=== PATIENT | male | born 2000 | race Caucasian/White ===

== ENCOUNTER 2022-01-10 04:15 | Day surgery (SDC) | payer OTHER ==
[2022-01-09 14:50] VITALS: BMI 39.1
[2022-01-10] MEDS ORDERED: MIDAZOLAM HCL 2 MG/2 ML SINGLE DOSE VIAL ONE ×2 (12:54→14:47)
[2022-01-10] MEDS ORDERED: ceFAZolin SODIUM 1 GM VIAL IVPB ONE (13:20)
[2022-01-10] MEDS ORDERED: ceFAZolin SODIUM 1 GM VIAL ONE (13:22)
[2022-01-10] MEDS ORDERED: LIDOCAINE 1%/EPI 1:100000 (20 ML MULTI DOSE VIAL) IJ ONE ×2 (13:23)
[2022-01-10] MEDS ORDERED: DEXAMETHASONE SOD PHOSPHATE 4 MG/1 ML VIAL ONE (13:55)
[2022-01-10] MEDS ORDERED: ONDANSETRON 4 MG/2 ML VIAL ONE (13:55)
[2022-01-10] MEDS ORDERED: GLYCOPYRROLATE 0.2 MG/1 ML VIAL ONE (13:55)
[2022-01-10] MEDS ORDERED: LIDOCAINE HCL/PF 2% SDV 5ML VIAL ONE (13:55)
[2022-01-10] MEDS ORDERED: NEOSTIGMINE METHYLSULFATE 0.5 MG/ML - 10 ML MDV ONE (13:56)
[2022-01-10] MEDS ORDERED: oxyCODONE HCL 5 MG TABLET PO PRN (14:08)
[2022-01-10] MEDS ORDERED: ONDANSETRON 4 MG/2 ML VIAL IVPUSH PRN (14:08)
[2022-01-10] MEDS ORDERED: LACTATED RINGERS SOLUTION 1,000 ML IV SCH (14:15)
[2022-01-10] MEDS ORDERED: PROPOFOL 40 ML ONE (14:31)
[2022-01-10 16:39] VITALS: RESP 18
[2022-01-10 16:54] VITALS: TEMP 98.2
[2022-01-10 17:44] VITALS: BP 144/94; PULSE 72
== END 2022-01-10 05:45 | disposition home or self-care (01) ==
LOC: JASU-SURG 04:15
PROVIDERS: ATTEND Otolaryngology
PROC: 093K8ZZ Control Bleeding in Nasal Mucosa and Soft Tissue, Via Natural or Artificial Opening Endoscopic (ICD-10-PCS; principal; 2022-01-10 12:30)
DX: R04.0 Epistaxis (principal)
CPT/HCPCS: 88304-TC; 88311-TC; 94760

== ENCOUNTER 2022-01-10 19:53 | Day surgery (SDC) | payer OTHER ==
[2022-01-10 20:07] VITALS: BMI 39.1
[2022-01-10] MEDS ORDERED: SODIUM CHLORIDE 0.9% 500 ML INFUS.BAG IV ONE (20:54)
[2022-01-10 20:55] LABS: HEMATOCRIT 51.4 % (35.4-49); HEMOGLOBIN 17.1 GM/dL (11.7-16.9); MCH 31.2 pg (25.7-33.7); MCHC 33.3 g/dl (32.0-35.9); MEAN CELL VOLUME 93.6 fl (80-96); MEAN PLT VOLUME 8.6 fl (7.5-11.1); PLATELET COUNT 304 10^3/uL (134-434); RBC 5.49 M/mm3 (4.00-5.60); RDW 13.1 % (11.9-15.9); WHITE BLOOD COUNT 20.6 K/mm3 (4.0-10.0)
[2022-01-10 21:03] LABS: INR 1.1 (0.83-1.09); PROTHROMBIN TIME (PATIENT) 12.7 SEC (9.7-13.0)
[2022-01-10 21:06] LABS: ACTIVATED PTT 33.3 SECONDS (25.2-36.5)
[2022-01-10 21:17] LABS: ALBUMIN 4.8 g/dl (3.4-5.0); BLOOD UREA NITROGEN 9.3 mg/dL (7-18); CALCIUM 9.8 mg/dL (8.5-10.1)
[2022-01-10 21:20] LABS: CREATININE 1.1 mg/dL (0.55-1.3)
[2022-01-10 21:22] LABS: BILIRUBIN,TOTAL 1.1 mg/dL (0.2-1); TOT PROT 8.6 g/dl (6.4-8.2)
[2022-01-10] MEDS ORDERED: TRANEXAMIC ACID 1000 MG/10 ML VIAL IVPUSH ONE (21:34)
[2022-01-10] MEDS ORDERED: TRANEXAMIC ACID 1000 MG/10 ML VIAL ONE (21:36)
[2022-01-10 22:52] LABS: ANISOCYTOSIS 0; MACROCYTOSIS 0; PLATELET ESTIMATE NORMAL
[2022-01-11] MEDS ORDERED: SODIUM CHLORIDE 0.9% 500 ML INFUS.BAG IV ONE (00:05)
[2022-01-11] MEDS ORDERED: SUCCINYLCHOLINE CHLORIDE 200 MG/10 ML SYRINGE ONE (00:27)
[2022-01-11] MEDS ORDERED: MIDAZOLAM HCL 2 MG/2 ML SINGLE DOSE VIAL ONE (00:27)
[2022-01-11] MEDS ORDERED: PROPOFOL 20 ML ONE ×2 (00:27→00:31)
[2022-01-11] MEDS ORDERED: LIDOCAINE HCL/PF 2% SDV 5ML VIAL ONE (00:30)
[2022-01-11] MEDS ORDERED: ceFAZolin SODIUM 1 GM VIAL IVPB ONE (00:54)
[2022-01-11] MEDS ORDERED: ceFAZolin SODIUM 1 GM VIAL ONE (01:02)
[2022-01-11] MEDS ORDERED: BACITRACIN 15 GM TUBE TOPICAL OINTMENT TP ONE (01:34)
[2022-01-11] MEDS ORDERED: ONDANSETRON 4 MG/2 ML VIAL ONE (01:37)
[2022-01-11] MEDS: LACTATED RINGERS SOLUTION 1,000 ML IV SCH ×2 (02:14→03:40)
[2022-01-11] MEDS ORDERED: ONDANSETRON 4 MG/2 ML VIAL IVPUSH PRN (02:31)
[2022-01-11] MEDS ORDERED: ACETAMINOPHEN 1000 MG/100 ML BAG IVPB ONE (02:32)
[2022-01-11] MEDS ORDERED: ACETAMINOPHEN INJECTION 100 ML IVPB ONE (02:34)
[2022-01-11 10:58] VITALS: BP 140/88; PULSE 100; RESP 18; TEMP 98.8
== END 2022-01-11 11:04 | disposition home or self-care (01) ==
LOC: JER 19:53 → JASUSAT 01-11 00:20 → J8W 01-11 03:30 → UNDOADMIN 01-11 03:30 → J8W 01-11 03:30 → JASU-SURG 01-11 03:31 → J8W 01-11 03:31 → JASUSAT 01-11 11:04
PROVIDERS: ATTEND Otolaryngology
PROC: 3E033GC Introduction of Other Therapeutic Substance into Peripheral Vein, Percutaneous Approach (ICD-10-PCS; principal; 2022-01-10 23:54)
DX: R04.0 Epistaxis (principal)
CPT/HCPCS: 36415; 80053; 85025; 85610; 85730; 86850; 86900; 86901; 94760; 99285-25